=== PATIENT | female | born 1975 | race Caucasian/White ===

== ENCOUNTER 2017-01-09 10:57 | Emergency (ER) | payer OTHER ==
[2017-01-09 11:02] VITALS: BP 102/70; PULSE 81; TEMP 98; BMI 28.3
--- NOTE | 2017-01-09 13:12 | PDOC ---
"History of Present Illness - General Chief Complaint: Pain Stated Complaint: RT LEG PAIN Time Seen by Provider: 01/09/17 12:38 History Source: Patient Exam Limitations: No Limitations - History of Present Illness Initial Comments: 01/09/17 13:09 My Chief Complaint: right knee pain History of present illness: Patient is a 41-year-old female with a history of asthma, mitral valve prolapse, hyperlipidemia, anxiety, gastric sleeve, bipolar disorder here today complaining of right knee pain 2 weeks. Patient reports that 2 weeks ago she was seen at [facility] and was given a right knee immobilizer and referred to Dr. Mcguire, Dr. larios on 01/04/17 and patient then soft pain management on 01/06/2017. Patient reports that she is taking morphine sulfate, percocet, toradol tabs and naprosyn for OA of her spine. Ports that pain in right anterior knee is a burning sensation unrelieved by the pain medications that she is currently taking patient is ambulating with knee immobilizer and crutches. 01/09/17 13:15 Occurred: reports: other (2 weeks ago ) Severity: Yes: severe (right knee ) Lower Extremity Pain Location: right: knee (anterior ) Method of Injury: Yes: unknown Modifying Factors: improves with: immobilization Lower Ext. Injury Location - Specific Injury Location Knees: left pain (anterior ) Extremity Pain Location - Extremity Pain Location Extremity Pain Locations: right: knee Past History - Past Medical History Allergies/Adverse Reactions: Allergies Allergy/AdvReac Type Severity Reaction Status Date / Time No Known Drug Allergies Allergy Verified 01/09/17 11:02 Home Medications: Ambulatory Orders Albuterol 0.083% Nebulizer Alexa [Ventolin 0.083%] 1 neb NEB QID PRN 07/02/15 Albuterol Sulfate Inhaler - [Ventolin Hfa Inhaler -] 2 inh PO Q4H 07/02/15 Aripiprazole [Abilify] 10 mg PO HS 07/02/15 Benztropine Mesylate [Cogentin -] 2 mg PO DAILY 07/02/15 Budesonide/Formeterol Fumarate [SYMBICORT 160/4.5mcg -] 1 inh PO BID 07/02/15 Calcium Carbonate/Vitamin D3 [Calcium + Vitamin D Tablet] 1 each PO DAILY Clonazepam [Klonopin] 2 mg PO BID 07/02/15 Duloxetine HCl [Cymbalta] 20 mg PO DAILY 07/02/15 Eletriptan Hydrobromide [Relpax] 40 mg PO PRN PRN 07/02/15 Gabapentin [Neurontin] 800 mg PO TID 07/02/15 Hydroxyzine Pamoate [Vistaril -] 50 mg PO BID 07/02/15 Mirtazapine 30 mg PO HS 07/02/15 Montelukast Na [Singulair -] 10 mg PO DAILY 07/02/15 Morphine *Sr* [Ms Contin -] 15 mg PO Q12H 07/02/15 Multivitamin Bariatric Supplement 1 tab PO DAILY 07/02/15 Multivitamin [Poly-Vitamin] 1 each PO DAILY 07/02/15 Naproxen/Esomeprazole Mag [Vimovo Dr 375-20 mg Tablet] 1 each PO BID 07/02/15 Oxycodone HCl/Acetaminophen [Percocet 7.5-325 mg Tablet -] 1 - 2 tab PO Q8H Pantoprazole Sodium [Protonix] 40 mg PO DAILY 07/02/15 Pregabalin [Lyrica] 100 mg PO TID 07/02/15 Roflumilast [Daliresp] 500 mcg PO DAILY 07/02/15 Sumatriptan Succinate [Imitrex -] 50 mg PO PRN PRN 07/02/15 Tiotropium [place] [Spiriva -] 1 inh PO DAILY 07/02/15 Triplix 135 mg PO DAILY 07/02/15 Tropimate 100 mg PO BID 07/02/15 Ciprofloxacin [Cipro (Restricted To Id)] 500 mg PO Q12H 07/23/15 Diclofenac Sodium/Misoprostol [Arthrotec EC 75 mg-200 Mcg Tab] 1 each PO BID # 20 tablet.dr 07/23/15 Tizanidine HCl 4 mg PO TID #10 capsule 07/23/15 Anemia: No Asthma: Yes Cancer: No Cardiac Disorders: No (mitral valve prolapse) CVA: No COPD: No CHF: No Dementia: No Diabetes: No GI Disorders: No Disorders: No HTN: No Hypercholesterolemia: Yes Liver Disease: No Psychiatric Problems: Yes (anxiety) Seizures: No Thyroid Disease: No Other medical history: Arthritis - Surgical History Abdominal Surgery: (gastric sleeve) Appendectomy: Yes Cholecystectomy: Yes - Psycho/Social/Smoking Cessation Hx Suicidal Ideation: No Smoking History: Never smoked Have you smoked in the past 12 months: No Information on smoking cessation initiated: No Hx Alcohol Use: No Drug/Substance Use Hx: No Substance Use Type: None Hx Substance Use Treatment: No Review of Systems - Review of Systems Able to Perform ROS?: Yes HEENTM: No: Symptoms Reported Respiratory: No: Symptoms reported Cardiac (ROS): No: Symptoms Reported ABD/GI: No: Symptoms Reported : No: Symptoms Reported Musculoskeletal: Yes: Joint Pain (rt. knee anterior ), Joint Swelling (rt. knee anterior (knee immoblizer in place tight) ) Neurological: No: Symptoms reported *Physical Exam - Vital Signs Last Vital Signs Temp Pulse Resp BP Pulse Ox 98 F 81 18 102/70 95 01/09/17 11:01 01/09/17 11:01 01/09/17 11:01 01/09/17 11:01 01/09/17 11:01 - Physical Exam General Appearance: Yes: Appropriately Dressed Vascular Pulses: Dorsalis-Pedis (R): 4+ Extremity: positive: Normal Capillary Refill, Normal Range of Motion, Tender ( rt. anterior knee ), Swelling (rt. anterior knee (immobilizer on excessively tight)), Other (no crepitus rt. knee, negative anterior/posterior drawer) Integumentary: positive: Normal Color Neurologic: positive: Alert, Normal Response, Responsive Medical Decision Making - Medical Decision Making Patient is a 41-year-old female with a history of asthma, mitral valve prolapse , hyperlipidemia, anxiety, gastric sleeve, bipolar disorder here today complaining of right knee pain 2 weeks. Patient reports that 2 weeks ago she was seen at [facility] and was given a right knee immobilizer and referred to Dr. Mcguire, Dr. larios on 01/04/17 and patient then soft pain management on 01/06/2017. Patient reports that she is taking morphine sulfate, percocet, toradol tabs and naprosyn for OA of her spine. Ports that pain in right anterior knee is a burning sensation unrelieved by the pain medications that she is currently taking patient is ambulating with knee immobilizer and crutches. Pt. has not taking toradol or naprosyn today right knee pain PLAN: Toradol 60 mg IM now follow up with ortho knee immoblizer reapplied less tight instructed not to apply it as tight and to use crutches for ambulation pt. was instructed to elevate and to apply ice every 2 hrs while awake for 15 minutes Pt. informed that I could not order her any other pain medication at this time due to amount of pain medications she is already both narcotic and NSAID 01/09/17 13:14 Confidential Drug Utilization Report Search Terms: Farideh Ramsey, 1975 Search Date: 01/09/2017 01:06:47 PM This report was requested by: Marion Alatorre | Reference #: [id number] Others' Prescriptions Patient Name: Farideh Aldrich Date: 1975 Address: [address] [place] [address] Sex: Female Rx Written Rx Dispensed Drug Quantity Days Supply Prescriber Name 12/06/2016 01/03/2017 endocet 10-325 mg tablet 120 30 Bulmaro Benavides 12/06/2016 01/03/2017 morphine sulf er 15 mg tablet 60 30 TesfayeholBulmaro blount 12/13/2016 12/29/2016 clonazepam 2 mg tablet 90 30 Otilia Loyd 01/09/17 13:15 01/09/17 13:28 *DC/Admit/Observation/Transfer Diagnosis at time of Disposition: Knee pain, right anterior - Discharge Dispostion Disposition: HOME Condition at time of disposition: Stable - Referrals Referrals: Rio Kruse [Primary Care Provider] - - Patient Instructions Additional Instructions: follow up with ortho put on knee immoblizer reapplied less tight and to use crutches for ambulation elevate and to apply ice every 2 hrs while awake for 15 minutes continue to take your medications for pain as previously ordered Patient voiced understanding of discharge instructions and all questions were answered"
[2017-01-09] MEDS ORDERED: KETOROLAC TROMETHAMINE 60 MG/2 ML VIAL IM ONE (13:28)
[2017-01-09] MEDS ORDERED: KETOROLAC TROMETHAMINE 60 MG/2 ML VIAL ONE (13:28)
== END 2017-01-09 13:33 | disposition home or self-care (01) ==
LOC: JERFT 10:57
PROC: 3E0233Z Introduction of Anti-inflammatory into Muscle, Percutaneous Approach (ICD-10-PCS; principal; 2017-01-09)
DX: M25.561 Pain in right knee (principal); J45.909 Unspecified asthma, uncomplicated; E78.5 Hyperlipidemia, unspecified; F41.9 Anxiety disorder, unspecified; I34.1 Nonrheumatic mitral (valve) prolapse; F31.9 Bipolar disorder, unspecified; Z98.84 Bariatric surgery status
CPT/HCPCS: 96372; 99281-25

== ENCOUNTER 2017-07-06 11:34 | Emergency (ER) | payer OTHER ==
[2017-07-06 11:42] VITALS: BMI 24.7
[2017-07-06] MEDS ORDERED: ONDANSETRON 4 MG/2 ML VIAL IVPUSH ONE (12:33)
[2017-07-06] MEDS ORDERED: SODIUM CHLORIDE 1,000 ML IV STA (12:33)
--- NOTE | 2017-07-06 12:45 | PDOC ---
History of Present Illness - General Chief Complaint: Chest Pain Stated Complaint: HEADACHE, LIGHTHEADED (PCP SENT) Time Seen by Provider: 07/06/17 12:09 History Source: Patient Exam Limitations: No Limitations - History of Present Illness Initial Comments: 07/06/17 12:35 The patient is a 41 year old female, with a significant past medical history of anxiety, depression, panic attacks, and migraines, who presents to the emergency department sent by her neurologist for full body tremors x 3 days. Patient states for the past 2 weeks she has been having a constant headache, bifrontal, radiating to her neck, pressure like. Patient also endorses blurry vision, nausea, vomiting, and nighttime diaphoresis. She also states that she has been having midsternal chest pain, 8/10, non radaiting, pressure like, for 2 weeks. 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 She takes aspirin for it. Patient denies fever, chills, diarrhea, shortness of breath, abdominal pain, dysuria, hematuria. Of note, patient had a gastric sleeve 3 years prior and has had poor appetite since. Allergies: NKDA Past surgical history: Gastric Sleeve, Appendectomy, Cholecystectomy Social history: Denies PMD - Dr. Rossi Neurologist- Dr. Caamrgo 07/06/17 15:29 Past History - Past Medical History Allergies/Adverse Reactions: Allergies Allergy/AdvReac Type Severity Reaction Status Date / Time No Known Drug Allergies Allergy Verified 07/06/17 11:39 Home Medications: Ambulatory Orders Albuterol 0.083% Nebulizer Alexa [Ventolin 0.083%] 1 neb NEB QID PRN 07/02/15 Albuterol Sulfate Inhaler - [Ventolin Hfa Inhaler -] 2 inh PO Q4H 07/02/15 Aripiprazole [Abilify] 10 mg PO HS 07/02/15 Benztropine Mesylate [Cogentin -] 2 mg PO DAILY 07/02/15 Budesonide/Formeterol Fumarate [SYMBICORT 160/4.5mcg -] 1 inh PO BID 07/02/15 Calcium Carbonate/Vitamin D3 [Calcium + Vitamin D Tablet] 1 each PO DAILY Clonazepam [Klonopin] 2 mg PO BID 07/02/15 Duloxetine HCl [Cymbalta] 20 mg PO DAILY 07/02/15 Eletriptan Hydrobromide [Relpax] 40 mg PO PRN PRN 07/02/15 Gabapentin [Neurontin] 800 mg PO TID 07/02/15 Hydroxyzine Pamoate [Vistaril -] 50 mg PO BID 07/02/15 Mirtazapine 30 mg PO HS 07/02/15 Montelukast Na [Singulair -] 10 mg PO DAILY 07/02/15 Morphine *Sr* [Ms Contin -] 15 mg PO Q12H 07/02/15 Multivitamin Bariatric Supplement 1 tab PO DAILY 07/02/15 Multivitamin [Poly-Vitamin] 1 each PO DAILY 07/02/15 Naproxen/Esomeprazole Mag [Vimovo Dr 375-20 mg Tablet] 1 each PO BID 07/02/15 Oxycodone HCl/Acetaminophen [Percocet 7.5-325 mg Tablet -] 1 - 2 tab PO Q8H Pantoprazole Sodium [Protonix] 40 mg PO DAILY 07/02/15 Pregabalin [Lyrica] 100 mg PO TID 07/02/15 Roflumilast [Daliresp] 500 mcg PO DAILY 07/02/15 Sumatriptan Succinate [Imitrex -] 50 mg PO PRN PRN 07/02/15 Tiotropium [place] [Spiriva -] 1 inh PO DAILY 07/02/15 Triplix 135 mg PO DAILY 07/02/15 Tropimate 100 mg PO BID 07/02/15 Ciprofloxacin [Cipro (Restricted To Id)] 500 mg PO Q12H 07/23/15 Diclofenac Sodium/Misoprostol [Arthrotec EC 75 mg-200 Mcg Tab] 1 each PO BID # 20 tablet. 07/23/15 Tizanidine HCl 4 mg PO TID #10 capsule 07/23/15 Anemia: No Asthma: Yes Cancer: No Cardiac Disorders: (mitral valve prolapse) CVA: No COPD: No CHF: No Dementia: No Diabetes: No GI Disorders: No Disorders: No HTN: No Hypercholesterolemia: Yes Liver Disease: No Psychiatric Problems: Yes (anxiety) Seizures: No Thyroid Disease: No - Surgical History Abdominal Surgery: (gastric sleeve) Appendectomy: Yes Cholecystectomy: Yes - Suicide/Smoking/Psychosocial Hx Smoking History: Never smoked Have you smoked in the past 12 months: No Hx Alcohol Use: No Drug/Substance Use Hx: No Substance Use Type: None Hx Substance Use Treatment: No Review of Systems - Review of Systems Able to Perform ROS?: Yes Comments:: 07/06/17 12:37 GENERAL/CONSTITUTIONAL: No fever or chills. No weakness. HEAD, EYES, EARS, NOSE AND THROAT: +change in vision. No ear pain or discharge. No sore throat. CARDIOVASCULAR: +chest pain, No shortness of breath RESPIRATORY: No cough, wheezing, or hemoptysis. GASTROINTESTINAL: +nausea, +vomiting, No diarrhea or constipation. GENITOURINARY: No dysuria, frequency, or change in urination. MUSCULOSKELETAL: No joint or muscle swelling or pain. No neck or back pain. SKIN: No rash NEUROLOGIC: + headache, No vertigo, loss of consciousness, or change in strength /sensation. +lightheadedness ENDOCRINE: No increased thirst. No abnormal weight change HEMATOLOGIC/LYMPHATIC: No anemia, easy bleeding, or history of blood clots. ALLERGIC/IMMUNOLOGIC: No hives or skin allergy. *Physical Exam - Vital Signs Last Vital Signs Temp Pulse Resp BP Pulse Ox 98.3 F 104 H 19 101/64 100 07/06/17 11:39 07/06/17 11:39 07/06/17 11:39 07/06/17 11:39 07/06/17 11:39 - Physical Exam Comments: 07/06/17 12:37 GENERAL: Awake, alert, and fully oriented, in no acute distress HEAD: No signs of trauma, normocephalic, atraumatic EYES: PERRLA, EOMI, sclera anicteric, conjunctiva clear ENT: hearing grossly normal, nares patent, oropharynx clear without exudates. Dry mucosa NECK: Normal ROM, supple, no lymphadenopathy, JVD, or masses LUNGS: No distress, speaks full sentences, clear to auscultation bilaterally HEART: Regular rate and rhythm, normal S1 and S2, no murmurs, rubs or gallops, peripheral pulses normal and equal bilaterally. ABDOMEN: Soft, nontender, normoactive bowel sounds. No guarding, no rebound. No masses EXTREMITIES: Normal inspection, Normal range of motion, no edema. No clubbing or cyanosis. NEUROLOGICAL: Cranial nerves II through XII grossly intact. Normal speech, 4/5 strength in UE, 5/5 strength in LE, no change in sensation. +Resting Tremors SKIN: Warm, Dry, normal turgor, no rashes or lesions noted. ED Treatment Course - LABORATORY CBC & Chemistry Diagram: 07/06/17 12:58 07/06/17 15:03 Medical Decision Making - Medical Decision Making 07/06/17 12:52 The patient is a 41 year old female, with a significant past medical history of anxiety, depression, panic attacks, and migraines, who presents to the emergency department sent by her neurologist for full body tremors x 3 days. Plan: CBC, CMP, EKG, Cardiac Profile, Serum Preg, UA, UCx, IVF, Zofran 07/06/17 15:18 CBC, Head CT unremarkable 07/06/17 15:37 Call placed to [facility]ola who sent the patient in. [employer]ING [employer] GAUGER wants MRI brain. Call placed to our neurologist Dr. Saez. Dr Saez will come evaluate the patient. 07/06/17 15:53 CMP, TSH- unremarkable 07/06/17 18:26 Repeat troponin at 7 pm. If negative, patient stable for d/c 07/06/17 20:34 2nd trop negative. Patient stable for d/c *DC/Admit/Observation/Transfer Diagnosis at time of Disposition: Tremor - Discharge Dispostion Disposition: HOME Condition at time of disposition: Stable - Referrals Referrals: Rio Kruse [Primary Care Provider] - Brisa Camargo MD [Staff Physician] - - Patient Instructions Printed Discharge Instructions: DI for Benign Essential Tremor Additional Instructions: Follow up with your psychiatrist and your neurologist. Your head CT and Chest xray were negative. If you have chest pain, shortness of breath, or any new/worsening symptoms please come back to the hospital immediately.
[2017-07-06] MEDS ORDERED: LORazepam 1 MG TABLET PO ONE (13:04)
[2017-07-06] MEDS ORDERED: ONDANSETRON 4 MG/2 ML VIAL ONE (13:08)
[2017-07-06] MEDS ORDERED: LORazepam 0.5 MG TABLET ONE ×2 (13:08→14:51)
[2017-07-06 13:14] LABS: BASOPHIL 0.8 % (0-2.0); EOSINOPHIL 1.2 % (0-4.5); MCH 31.1 pg (25.7-33.7); MCHC 34.1 g/dl (32.0-36.0); MEAN CELL VOLUME 91.4 fl (80-96); MEAN PLT VOLUME 7.5 fl (7.5-11.1); NEUTROPHILS 62.2 % (42.8-82.8); PLATELET COUNT 329 K/MM3 (134-434); RDW 13.1 % (11.6-15.6); WHITE BLOOD COUNT 7.6 K/mm3 (4.0-10.0)
[2017-07-06] MEDS ORDERED: LORazepam 0.5 MG TABLET PO ONE (14:02)
--- NOTE | 2017-07-06 14:56 | EKG ---
Test Reason : Blood Pressure : / mmHG Vent. Rate : 095 BPM Atrial Rate : 267 BPM P-R Int : 000 ms QRS Dur : 074 ms QT Int : 370 ms P-R-T Axes : 000 049 055 degrees QTc Int : 464 ms POOR DATA QUALITY, INTERPRETATION MAY BE ADVERSELY AFFECTED UNDETERMINED RHYTHM NONSPECIFIC ST AND T WAVE ABNORMALITY ABNORMAL ECG Confirmed by STACY RAO MD ([id number]) on 07/06/2017 2:56:17 PM Referred By: Confirmed By:STACY RAO MD
[2017-07-06 15:39] LABS: ALBUMIN 3.5 g/dl (3.4-5.0); ANION GAP 7 (8-16); BILIRUBIN,TOTAL 0.5 mg/dL (0.2-1.0); CALCIUM 8.2 mg/dL (8.5-10.1); CO2 27 mmol/L (21-32); CREATININE 0.6 mg/dL (0.55-1.02); GLUCOSE,RANDOM 78 mg/dL (74-106); SGOT/AST 13 U/L (15-37); SGPT/ALT 19 U/L (12-78); TOT PROT 6.5 g/dl (6.4-8.2)
[2017-07-06 15:48] LABS: ALK PHOS 96 U/L (45-117); CPK 26 IU/L (26-192); THYROID STIMULATING HORMONE 0.75 uIU/ml (0.358-3.74); TROPONIN I < 0.02 ng/ml (0.00-0.05)
--- NOTE | 2017-07-06 16:34 | PDOC ---
Attending Attestation - Resident Resident Name: Inder Mclean - ED Attending Attestation I have performed the following: I have examined & evaluated the patient, The case was reviewed & discussed with the resident, I agree w/resident's findings & plan, Exceptions are as noted - HPI HPI: 07/06/17 16:32 41-year-old female presents to the ER with generalized tremors involving upper and lower extremities bilaterally for the past 3 days, frontal headache, insomnia and intermittent chest pain. - Physicial Exam PE: 07/06/17 16:33 Patient is awake and alert, anxious appearing, with resting and intentional tremor of upper and lower extremities and festinating gait. Patient's tremor disappears when she is not actively being examined by the M.D. but reappears when the M.D. is noted or the patient is approached. nc, atr perrla cta rrr Cranial nerves II through XII are grossly intact; motor is 5 of 54; - Medical Decision Making 07/06/17 16:33 41-year-old female with 3 days of bilateral upper and lower extremity intentional and resting tremor. CT head is within normal limit. We'll consult neurology. I suspect secondary gain with malingering.
--- NOTE | 2017-07-06 17:19 | CON.NEURO ---
Consult - Past Medical History ...LMP: 06/29/15 - Past Surgical History Past Surgical History: Yes: Appendectomy, Cholecystectomy - Alcohol/Substance Use Hx Alcohol Use: No - Smoking History Smoking history: Never smoked Have you smoked in the past 12 months: No Home Medications - Allergies Allergies/Adverse Reactions: Allergies Allergy/AdvReac Type Severity Reaction Status Date / Time No Known Drug Allergies Allergy Verified 07/06/17 11:39 - Home Medications Home Medications: Ambulatory Orders Albuterol 0.083% Nebulizer Alexa [Ventolin 0.083%] 1 neb NEB QID PRN 07/02/15 Albuterol Sulfate Inhaler - [Ventolin Hfa Inhaler -] 2 inh PO Q4H 07/02/15 Aripiprazole [Abilify] 10 mg PO HS 07/02/15 Benztropine Mesylate [Cogentin -] 2 mg PO DAILY 07/02/15 Budesonide/Formeterol Fumarate [SYMBICORT 160/4.5mcg -] 1 inh PO BID 07/02/15 Calcium Carbonate/Vitamin D3 [Calcium + Vitamin D Tablet] 1 each PO DAILY Clonazepam [Klonopin] 2 mg PO BID 07/02/15 Duloxetine HCl [Cymbalta] 20 mg PO DAILY 07/02/15 Eletriptan Hydrobromide [Relpax] 40 mg PO PRN PRN 07/02/15 Gabapentin [Neurontin] 800 mg PO TID 07/02/15 Hydroxyzine Pamoate [Vistaril -] 50 mg PO BID 07/02/15 Mirtazapine 30 mg PO HS 07/02/15 Montelukast Na [Singulair -] 10 mg PO DAILY 07/02/15 Morphine *Sr* [Ms Contin -] 15 mg PO Q12H 07/02/15 Multivitamin Bariatric Supplement 1 tab PO DAILY 07/02/15 Multivitamin [Poly-Vitamin] 1 each PO DAILY 07/02/15 Naproxen/Esomeprazole Mag [Vimovo Dr 375-20 mg Tablet] 1 each PO BID 07/02/15 Oxycodone HCl/Acetaminophen [Percocet 7.5-325 mg Tablet -] 1 - 2 tab PO Q8H Pantoprazole Sodium [Protonix] 40 mg PO DAILY 07/02/15 Pregabalin [Lyrica] 100 mg PO TID 07/02/15 Roflumilast [Daliresp] 500 mcg PO DAILY 07/02/15 Sumatriptan Succinate [Imitrex -] 50 mg PO PRN PRN 07/02/15 Tiotropium [place] [Spiriva -] 1 inh PO DAILY 07/02/15 Triplix 135 mg PO DAILY 07/02/15 Tropimate 100 mg PO BID 07/02/15 Ciprofloxacin [Cipro (Restricted To Id)] 500 mg PO Q12H 07/23/15 Diclofenac Sodium/Misoprostol [Arthrotec EC 75 mg-200 Mcg Tab] 1 each PO BID # 20 tablet. 07/23/15 Tizanidine HCl 4 mg PO TID #10 capsule 07/23/15 Physical Exam-Neuro Vital Signs: Vital Signs Temperature 98.3 F 07/06/17 11:39 Pulse Rate 104 H 07/06/17 11:39 Respiratory Rate 19 07/06/17 11:39 Blood Pressure 101/64 07/06/17 11:39 O2 Sat by Pulse Oximetry (%) 100 07/06/17 11:39 Labs: CBC, BMP 07/06/17 12:58 07/06/17 15:03 Assessment/Plan CC SENt from dr gardner [employer] for worsening of tremors HPI 41 year old female hsitory of panic attacks, depression , anxiety and migraine came with her daughter with complain of whole body tremors for three days. She was seeing neurologist for chronic headhace. She takes Benzotropine, clonazepam 2 mg bid , gbapentin remeron, vistaril , morphine recently her sister was caught in storm at [place] and she is coming to live with her and she is very stressed. as per daughter she has trouble sleeping her ct head is normal and tsh was normal before Allergies: NKDA Past surgical history: Gastric Sleeve, Appendectomy, Cholecystectomy 07/06/17 15:29 Home Medications: Ambulatory Orders Albuterol 0.083% Nebulizer Alexa [Ventolin 0.083%] 1 neb NEB QID PRN 07/02/15 Albuterol Sulfate Inhaler - [Ventolin Hfa Inhaler -] 2 inh PO Q4H 07/02/15 Aripiprazole [Abilify] 10 mg PO HS 07/02/15 Benztropine Mesylate [Cogentin -] 2 mg PO DAILY 07/02/15 Budesonide/Formeterol Fumarate [SYMBICORT 160/4.5mcg -] 1 inh PO BID 07/02/15 Calcium Carbonate/Vitamin D3 [Calcium + Vitamin D Tablet] 1 each PO DAILY Clonazepam [Klonopin] 2 mg PO BID 07/02/15 Duloxetine HCl [Cymbalta] 20 mg PO DAILY 07/02/15 Eletriptan Hydrobromide [Relpax] 40 mg PO PRN PRN 07/02/15 Gabapentin [Neurontin] 800 mg PO TID 07/02/15 Hydroxyzine Pamoate [Vistaril -] 50 mg PO BID 07/02/15 Mirtazapine 30 mg PO HS 07/02/15 Montelukast Na [Singulair -] 10 mg PO DAILY 07/02/15 Morphine *Sr* [Ms Contin -] 15 mg PO Q12H 07/02/15 Multivitamin Bariatric Supplement 1 tab PO DAILY 07/02/15 Multivitamin [Poly-Vitamin] 1 each PO DAILY 07/02/15 Naproxen/Esomeprazole Mag [Vimovo Dr 375-20 mg Tablet] 1 each PO BID 07/02/15 Oxycodone HCl/Acetaminophen [Percocet 7.5-325 mg Tablet -] 1 - 2 tab PO Q8H Pantoprazole Sodium [Protonix] 40 mg PO DAILY 07/02/15 Pregabalin [Lyrica] 100 mg PO TID 07/02/15 Roflumilast [Daliresp] 500 mcg PO DAILY 07/02/15 Sumatriptan Succinate [Imitrex -] 50 mg PO PRN PRN 07/02/15 Tiotropium [place] [Spiriva -] 1 inh PO DAILY 07/02/15 Triplix 135 mg PO DAILY 07/02/15 Tropimate 100 mg PO BID 07/02/15 Ciprofloxacin [Cipro (Restricted To Id)] 500 mg PO Q12H 07/23/15 Diclofenac Sodium/Misoprostol [Arthrotec EC 75 mg-200 Mcg Tab] 1 each PO BID # 20 tablet. 07/23/15 Tizanidine HCl 4 mg PO TID #10 capsule 07/23/15 Neurological Examination Aler oriented x 3, CN all intact motor moving all extremity there is no rigidity or bradykinesia there is brief pelvic thrusting and both arm and legs seen shaking, Ct head is normal Assessment- psychogenic tremors vs enhanced physiologic tremors, tsh and ct head was normal Plan recommend to increase klonipin or gabapnetin - she would need psychiatrist consult outpatient no need for mri at this time she can follow up with dr gardner outpatient or can be sent to movement disorder clinic if needed Kwasi Castillo MD
[2017-07-06 20:07] LABS: CPK 24 IU/L (26-192); TROPONIN I < 0.02 ng/ml (0.00-0.05)
[2017-07-06 20:48] VITALS: BP 100/69; PULSE 70; TEMP 98.2
--- NOTE | 2017-07-07 09:48 | EKG ---
Test Reason : Blood Pressure : / mmHG Vent. Rate : 082 BPM Atrial Rate : 082 BPM P-R Int : 150 ms QRS Dur : 080 ms QT Int : 400 ms P-R-T Axes : 030 014 024 degrees QTc Int : 467 ms NORMAL SINUS RHYTHM NONSPECIFIC T WAVE ABNORMALITY Confirmed by MARIA TERESA BHANDARI MD ([id number]) on 07/07/2017 9:48:29 AM Referred By: Confirmed By:MARIA TERESA BHANDARI MD
== END 2017-07-06 20:48 | disposition home or self-care (01) ==
LOC: JER 11:34
DX: G25.2 Other specified forms of tremor (principal); F41.8 Other specified anxiety disorders; F41.0 Panic disorder [episodic paroxysmal anxiety]; Z86.69 Personal history of other diseases of the nervous system and sense organs
CPT/HCPCS: 36415; 70450-TC; 71020-TC; 80053; 82550; 84443; 84484; 84703; 85025; 93005; 93010; 99281-25

== ENCOUNTER 2017-10-11 11:33 | Emergency (ER) | payer OTHER ==
[2017-10-11 11:39] VITALS: TEMP 98.5; BMI 25.7
[2017-10-11] MEDS ORDERED: ACETAMINOPHEN 1000 MG/100 ML VIAL (NON FORMULARY) IVPB ONE (12:08)
[2017-10-11] MEDS ORDERED: SODIUM CHLORIDE 1,000 ML IV STA (12:08)
[2017-10-11] MEDS ORDERED: METOCLOPRAMIDE HCL INJECTION 10 MG/2 ML VIAL IVPB ONE (12:08)
[2017-10-11] MEDS ORDERED: ACETAMINOPHEN INJECTION 100 ML IVPB ONE (12:14)
--- NOTE | 2017-10-11 12:30 | PDOC ---
History of Present Illness - General Chief Complaint: Headache Stated Complaint: HEADACHE, RT SIDE/ PAIN Time Seen by Provider: 10/11/17 12:01 - History of Present Illness Initial Comments: 10/11/17 12:24 "The patient is a 41 year old female, with a significant past medical history of anxiety, depression, panic attacks, and migraines, who presents to the emergency department for sudden onset of left sided chest pain, left upper abdominal pain since last night and shortness of breath since yesterday. The patient reports a strong, 10/10, pressure pain to her left anterior chest radiating to her left posterior shoulder. She states that the pain radiates down her left arm. The patient states she feels she can not take a deep breath and reports a suffocating sensation when trying to do so. The patient states she has been hot then cold and sweaty intermittently since onset of symptoms last night. She states she has a diffuse pressure headache for 2 days which is consistent with her usual migraines. She denies dizziness. She denies fever, nausea, vomit, diarrhea and constipation. She denies dysuria, frequency, urgency and hematuria. Allergies: NKDA Past surgical history: Gastric Sleeve, Appendectomy, Cholecystectomy Social history: Denies toxic habits PMD - Dr. Kruse Neurologist- Dr. Camargo " Past History - Past Medical History Allergies/Adverse Reactions: Allergies Allergy/AdvReac Type Severity Reaction Status Date / Time No Known Drug Allergies Allergy Verified 07/06/17 11:39 Home Medications: Ambulatory Orders Albuterol 0.083% Nebulizer Alexa [Ventolin 0.083%] 1 neb NEB QID PRN 07/02/15 Albuterol Sulfate Inhaler - [Ventolin Hfa Inhaler -] 2 inh PO Q4H 07/02/15 Aripiprazole [Abilify] 10 mg PO HS 07/02/15 Benztropine Mesylate [Cogentin -] 2 mg PO DAILY 07/02/15 Budesonide/Formeterol Fumarate [SYMBICORT 160/4.5mcg -] 1 inh PO BID 07/02/15 Calcium Carbonate/Vitamin D3 [Calcium + Vitamin D Tablet] 1 each PO DAILY Clonazepam [Klonopin] 2 mg PO BID 07/02/15 Duloxetine HCl [Cymbalta] 20 mg PO DAILY 07/02/15 Eletriptan Hydrobromide [Relpax] 40 mg PO PRN PRN 07/02/15 Gabapentin [Neurontin] 800 mg PO TID 07/02/15 Hydroxyzine Pamoate [Vistaril -] 50 mg PO BID 07/02/15 Mirtazapine 30 mg PO HS 07/02/15 Montelukast Na [Singulair -] 10 mg PO DAILY 07/02/15 Morphine *Sr* [Ms Contin -] 15 mg PO Q12H 07/02/15 Multivitamin Bariatric Supplement 1 tab PO DAILY 07/02/15 Multivitamin [Poly-Vitamin] 1 each PO DAILY 07/02/15 Naproxen/Esomeprazole Mag [Vimovo Dr 375-20 mg Tablet] 1 each PO BID 07/02/15 Oxycodone HCl/Acetaminophen [Percocet 7.5-325 mg Tablet -] 1 - 2 tab PO Q8H Pantoprazole Sodium [Protonix] 40 mg PO DAILY 07/02/15 Pregabalin [Lyrica] 100 mg PO TID 07/02/15 Roflumilast [Daliresp] 500 mcg PO DAILY 07/02/15 Sumatriptan Succinate [Imitrex -] 50 mg PO PRN PRN 07/02/15 Tiotropium [place] [Spiriva -] 1 inh PO DAILY 07/02/15 Triplix 135 mg PO DAILY 07/02/15 Tropimate 100 mg PO BID 07/02/15 Diclofenac Sodium/Misoprostol [Arthrotec EC 75 mg-200 Mcg Tab] 1 each PO BID # 20 tablet.dr 07/23/15 Tizanidine HCl 4 mg PO TID #10 capsule 07/23/15 Anemia: No Asthma: Yes Cancer: No Cardiac Disorders: (mitral valve prolapse) CVA: No COPD: No CHF: No Dementia: No Diabetes: No GI Disorders: No Disorders: No HTN: No Hypercholesterolemia: Yes Liver Disease: No Psychiatric Problems: No (anxiety) Seizures: No Thyroid Disease: No - Surgical History Abdominal Surgery: Yes (gastric sleeve) Appendectomy: Yes Cholecystectomy: Yes - Suicide/Smoking/Psychosocial Hx Smoking History: Never smoked Have you smoked in the past 12 months: No Hx Alcohol Use: No Drug/Substance Use Hx: No Substance Use Type: None Hx Substance Use Treatment: No Cardiac Specific PMH - Complaint Specific PMHX GERD: No Pacemaker: No Review of Systems - Review of Systems Comments:: 10/11/17 12:25 """GENERAL/CONSTITUTIONAL: (+) subjective fever and chills. No weakness. HEAD, EYES, EARS, NOSE AND THROAT: No change in vision. No ear pain or discharge. No sore throat. CARDIOVASCULAR: (+) chest pain, diaphoresis, and shortness of breath. RESPIRATORY: No cough, wheezing, or hemoptysis. GASTROINTESTINAL: No nausea, vomiting, diarrhea or constipation. GENITOURINARY: No dysuria, frequency, or change in urination. MUSCULOSKELETAL: No joint or muscle swelling. No neck or back pain. SKIN: No rash NEUROLOGIC: (+) migraine. No vertigo, loss of consciousness, ENDOCRINE: No increased thirst. No abnormal weight change. HEMATOLOGIC/LYMPHATIC: No anemia, easy bleeding, or history of blood clots. ALLERGIC/IMMUNOLOGIC: No hives or skin allergy. """ *Physical Exam - Vital Signs Last Vital Signs Temp Pulse Resp BP Pulse Ox 98.5 F 71 18 105/57 99 10/11/17 11:35 10/11/17 14:21 10/11/17 14:21 10/11/17 14:21 10/11/17 14:21 - Physical Exam Comments: 10/11/17 12:26 "GENERAL: Awake, alert, and fully oriented, in no acute distress HEAD: No signs of trauma EYES: PERRLA, EOMI, sclera anicteric, conjunctiva clear ENT: Auricles normal inspection, hearing grossly normal, nares patent, oropharynx clear without exudates. Moist mucosa NECK: Nontender, no stepoffs, Normal ROM, supple, no lymphadenopathy, JVD, or masses LUNGS: Breath sounds equal, clear to auscultation bilaterally. No wheezes, and no crackles HEART: Regular rate and rhythm, normal S1 and S2, no murmurs, rubs or gallops ABDOMEN: Soft, nontender, normoactive bowel sounds. No guarding, no rebound. No masses EXTREMITIES: Normal range of motion, no edema. No clubbing or cyanosis. No cords, erythema, or tenderness NEUROLOGICAL: Cranial nerves II through XII intact. 5/5 strength and sensation in all extremities, Normal speech, normal gait SKIN: Warm, Dry, normal turgor, no rashes or lesions noted. " Heart Score/ECG Review - History History: Moderately suspicious - Electrocardiogram EKG: Non specific repolarization disturbance - Age Age: </= 45 - Risk Factors Based on the list above the patient has:: 1-2 risk factors - Troponin Troponin: </= normal limit - Score Heart Score - Total: 3 - ECG Impressions Comment:: NSR, no KAVITHA/STDs, TWI V1-V2, axis wnl, intervals wnl ED Treatment Course - LABORATORY CBC & Chemistry Diagram: 10/11/17 12:10 10/11/17 12:10 - ADDITIONAL ORDERS Additional order review: Laboratory Results 10/11/17 10/11/17 10/11/17 13:40 12:10 12:10 PT with INR 11.20 INR 0.99 PTT (Actin FS) 33.6 D-Dimer Sodium 140 Potassium 5.1 Chloride 103 Carbon Dioxide 29 Anion Gap 8 BUN 9 Creatinine 0.6 Creat Clearance w eGFR > 60 Random Glucose 87 Calcium 8.6 Total Bilirubin 0.2 D AST 25 ALT 15 Alkaline Phosphatase 72 Creatine Kinase 79 Troponin I < 0.02 B-Natriuretic Peptide 115.15 Total Protein 6.9 Albumin 3.5 Lipase 305 Urine HCG, Qual Negative 10/11/17 12:10 PT with INR INR PTT (Actin FS) D-Dimer 761 H Sodium Potassium Chloride Carbon Dioxide Anion Gap BUN Creatinine Creat Clearance w eGFR Random Glucose Calcium Total Bilirubin AST ALT Alkaline Phosphatase Creatine Kinase Troponin I B-Natriuretic Peptide Total Protein Albumin Lipase Urine HCG, Qual 10/11/17 12:10 RBC 4.54 MCV 92.2 MCHC 32.7 RDW 12.2 MPV 7.9 Neutrophils % 56.8 Lymphocytes % 32.8 Monocytes % 7.1 Eosinophils % 2.8 D Basophils % 0.5 - RADIOLOGY Radiology Studies Ordered: Category Date Time Status CHEST CTA [CT] Stat CT Scan 10/11/17 14:34 Completed CHEST PA & LAT [RAD] Stat Radiology 10/11/17 12:08 Completed - Medications Given in the ED: ED Medications Discontinued Medications Generic Name Dose Route Start Last Admin Trade Name Freq PRN Reason Stop Dose Admin Acetaminophen 1,000 mg 10/11/17 12:08 10/11/17 12:36 Ofirmev Injection - IVPB 10/11/17 12:09 1,000 mg ONCE ONE Administration Sodium Chloride 1,000 mls @ 1,000 mls/hr 10/11/17 12:08 10/11/17 12:36 Normal Saline - IV 10/11/17 13:07 1,000 mls/hr ASDIR STA Administration Metoclopramide HCl 10 mg 10/11/17 12:08 10/11/17 12:36 Reglan Injection - IVPB 10/11/17 12:09 10 mg ONCE ONE Administration Medical Decision Making - Medical Decision Making 10/11/17 12:28 41 F with L sided chest pain, SOB, and LUQ pain. Concerning for ACS, though pt with unremarkable EKG. Pt has no PE risk factors and PERC score 0, with no clinical signs/symptoms of DVT. Pt also complaining of LUQ pain but has completely benign abdominal exam. - Labs, trop, ddimer - CXR 10/11/17 16:09 CBC,CMP WBC 6.9 K/mm3 (4.0-10.0) 10/11/17 12:10 RBC 4.54 M/mm3 (3.60-5.2) 10/11/17 12:10 Hgb 13.7 GM/dL (10.7-15.3) 10/11/17 12:10 Hct 41.9 % (32.4-45.2) 10/11/17 12:10 MCV 92.2 fl (80-96) 10/11/17 12:10 MCH 30.1 pg (25.7-33.7) 10/11/17 12:10 MCHC 32.7 g/dl (32.0-36.0) 10/11/17 12:10 RDW 12.2 % (11.6-15.6) 10/11/17 12:10 Plt Count 252 K/MM3 (134-434) D 10/11/17 12:10 MPV 7.9 fl (7.5-11.1) 10/11/17 12:10 Neutrophils % 56.8 % (42.8-82.8) 10/11/17 12:10 Lymphocytes % 32.8 % (8-40) 10/11/17 12:10 Monocytes % 7.1 % (3.8-10.2) 10/11/17 12:10 Eosinophils % 2.8 % (0-4.5) D 10/11/17 12:10 Basophils % 0.5 % (0-2.0) 10/11/17 12:10 Sodium 140 mmol/L (136-145) 10/11/17 12:10 Potassium 5.1 mmol/L (3.5-5.1) 10/11/17 12:10 Chloride 103 mmol/L (98-107) 10/11/17 12:10 Carbon Dioxide 29 mmol/L (21-32) 10/11/17 12:10 Anion Gap 8 (8-16) 10/11/17 12:10 BUN 9 mg/dL (7-18) 10/11/17 12:10 Creatinine 0.6 mg/dL (0.55-1.02) 10/11/17 12:10 Creat Clearance w eGFR > 60 (>60) 10/11/17 12:10 Random Glucose 87 mg/dL (74-106) 10/11/17 12:10 Calcium 8.6 mg/dL (8.5-10.1) 10/11/17 12:10 Total Bilirubin 0.2 mg/dL (0.2-1.0) D 10/11/17 12:10 AST 25 U/L (15-37) 10/11/17 12:10 ALT 15 U/L (12-78) 10/11/17 12:10 Alkaline Phosphatase 72 U/L (45-117) 10/11/17 12:10 Creatine Kinase 79 IU/L (26-192) 10/11/17 12:10 Troponin I < 0.02 ng/ml (0.00-0.05) 10/11/17 12:10 B-Natriuretic Peptide 115.15 pg/ml (5-125) 10/11/17 12:10 Total Protein 6.9 g/dl (6.4-8.2) 10/11/17 12:10 Albumin 3.5 g/dl (3.4-5.0) 10/11/17 12:10 Lipase 305 U/L (73-393) 10/11/17 12:10 Ddimer elevated CTPE without any evidence of PE Pt reassessed - now reports significant improvement in pain. Pt is well appearing, with normal vitals. Clinically stable for DC at this time. I discussed the physical exam findings, ancillary test results and final diagnoses with the patient. I answered all of the patient's questions. The patient was satisfied with the care received and felt comfortable with the discharge plan and treatment plan. The patient agrees to follow up with the primary care physician within 24-72 hours. *DC/Admit/Observation/Transfer Diagnosis at time of Disposition: Chest pain - Discharge Dispostion Disposition: HOME - Referrals Referrals: Rio Kruse [Primary Care Provider] - Alexandr Bonds MD [Staff Physician] - - Patient Instructions Printed Discharge Instructions: DI for Atypical Chest Pain Additional Instructions: Please follow up with your labor conciliator within 1 week for further evaluation of your chest pain. Although the tests today were normal, we cannot rule out all heart disease. You may need a stress test. If you experience any worsening chest pain, shortness of breath, or any other concerning symptoms, return to the ER immediately. - Post Discharge Activity - Attestations Physician Attestion: 10/11/17 16:14 I, Dr. Gomez Rashid MD, attest that this document has been prepared under my direction and personally reviewed by me in its entirety. I further attest, that it accurately reflects all work, treatment, procedures and medical decision -making performed by me.
[2017-10-11] MEDS ORDERED: METOCLOPRAMIDE HCL INJECTION 10 MG/2 ML VIAL ONE (12:49)
[2017-10-11 13:11] LABS: BASO % 0.5 % (0-2.0); EOS % 2.8 % (0-4.5); HEMATOCRIT 41.9 % (32.4-45.2); HEMOGLOBIN 13.7 GM/dL (10.7-15.3); LYMPH % 32.8 % (8-40); MCH 30.1 pg (25.7-33.7); MCHC 32.7 g/dl (32.0-36.0); MEAN CELL VOLUME 92.2 fl (80-96); MEAN PLT VOLUME 7.9 fl (7.5-11.1); MONO % 7.1 % (3.8-10.2); NEUT % 56.8 % (42.8-82.8); PLATELET COUNT 252 K/MM3 (134-434); RBC 4.54 M/mm3 (3.60-5.2); RDW 12.2 % (11.6-15.6); WHITE BLOOD COUNT 6.9 K/mm3 (4.0-10.0)
[2017-10-11 13:29] LABS: INR 0.99 (0.82-1.09); PROTHROMBIN TIME (PATIENT) 11.2 SEC (9.98-11.88)
[2017-10-11 13:32] LABS: ACTIVATED PTT 33.6 SECONDS (26.9-34.4)
[2017-10-11 13:43] LABS: ANION GAP 8 (8-16); BLOOD UREA NITROGEN 9 mg/dL (7-18); CALCIUM 8.6 mg/dL (8.5-10.1); CHLORIDE 103 mmol/L (98-107); CO2 29 mmol/L (21-32); GLUCOSE,RANDOM 87 mg/dL (74-106); SODIUM 140 mmol/L (136-145)
[2017-10-11 13:57] LABS: ALBUMIN 3.5 g/dl (3.4-5.0); BILIRUBIN,TOTAL 0.2 mg/dL (0.2-1.0); CREATININE 0.6 mg/dL (0.55-1.02); SGPT/ALT 15 U/L (12-78); TOT PROT 6.9 g/dl (6.4-8.2)
[2017-10-11 13:58] LABS: ALK PHOS 72 U/L (45-117); N-TERMINAL BNP 115.15 pg/ml (5-125)
[2017-10-11 14:04] LABS: LIPASE 305 U/L (73-393)
[2017-10-11 14:05] LABS: POTASSIUM 5.1 mmol/L (3.5-5.1); SGOT/AST 25 U/L (15-37)
--- NOTE | 2017-10-11 15:33 | EKG ---
Test Reason : Blood Pressure : / mmHG Vent. Rate : 077 BPM Atrial Rate : 077 BPM P-R Int : 136 ms QRS Dur : 074 ms QT Int : 382 ms P-R-T Axes : 028 039 048 degrees QTc Int : 432 ms NORMAL SINUS RHYTHM NORMAL ECG WHEN COMPARED WITH ECG OF 06-JUL-2017 15:11, NO SIGNIFICANT CHANGE WAS FOUND Confirmed by HÉCTOR MAHARAJ MD ([id number]) on 10/11/2017 3:32:44 PM Referred By: Confirmed By:HÉCTOR MAHARAJ MD
[2017-10-11 16:58] VITALS: BP 104/74; PULSE 78
== END 2017-10-11 16:59 | disposition home or self-care (01) ==
LOC: JER 11:33
PROC: 3E0337Z Introduction of Electrolytic and Water Balance Substance into Peripheral Vein, Percutaneous Approach (ICD-10-PCS; principal; 2017-10-11)
DX: R07.89 Other chest pain (principal); F41.8 Other specified anxiety disorders; G43.909 Migraine, unspecified, not intractable, without status migrainosus; J45.909 Unspecified asthma, uncomplicated; I34.1 Nonrheumatic mitral (valve) prolapse
CPT/HCPCS: 36415; 71046-TC; 71275-TC; 80053; 82550; 83690; 83880; 84484; 84703; 85025; 85379; 85610; 85730; 93005; 93010; 96360; 99283-25

== ENCOUNTER 2019-06-11 08:07 | Emergency (ER) | payer OTHER ==
[2019-06-11] MEDS ORDERED: KETOROLAC TROMETHAMINE 30 MG/1 ML VIAL IVPUSH ONE (08:15)
[2019-06-11] MEDS ORDERED: SODIUM CHLORIDE 0.9% 1000 ML INFUS.BAG IV ONE (08:15)
[2019-06-11 08:20] VITALS: BMI 26.5
[2019-06-11] MEDS ORDERED: ASPIRIN COATED 81 MG TABLET.EC PO ONE (08:29)
--- NOTE | 2019-06-11 08:29 | PDOC ---
History of Present Illness - General Chief Complaint: Chest Pain Stated Complaint: CHEST PAIN Time Seen by Provider: 06/11/19 08:11 History Source: Patient Exam Limitations: No Limitations - History of Present Illness Initial Comments: 06/11/19 08:20 43F with a PMH of anxiety, depression, panic attacks, and migraines who presents to the ER complaining of CP. The patient states that she began developing L sided chest pressure since last night. She states that the pain starts in her L anterior chest, radiates to her shoulder and to her back. The pain started gradually and worsened this morning. She admits to mild nausea and palpitations but denies SOB, lightheadedness, diaphoresis, abdominal pain. She denies hempotysis, recent travel, recent surgery, pleuritic component to CP, hx of DVT/PE. Past History - Past Medical History Allergies/Adverse Reactions: Allergies Allergy/AdvReac Type Severity Reaction Status Date / Time No Known Drug Allergies Allergy Verified 06/11/19 08:12 Home Medications: Ambulatory Orders Albuterol 0.083% Nebulizer Alexa [Ventolin 0.083%] 1 neb NEB QID PRN 07/02/15 Albuterol Sulfate Inhaler - [Ventolin Hfa Inhaler -] 2 inh PO Q4H 07/02/15 Aripiprazole [Abilify] 10 mg PO HS 07/02/15 Benztropine Mesylate [Cogentin -] 2 mg PO DAILY 07/02/15 Budesonide/Formeterol Fumarate [SYMBICORT 160/4.5mcg -] 1 inh PO BID 07/02/15 Calcium Carbonate/Vitamin D3 [Calcium + Vitamin D Tablet] 1 each PO DAILY Clonazepam [Klonopin] 2 mg PO BID 07/02/15 Duloxetine HCl [Cymbalta] 20 mg PO DAILY 07/02/15 Eletriptan Hydrobromide [Relpax] 40 mg PO PRN PRN 07/02/15 Gabapentin [Neurontin] 800 mg PO TID 07/02/15 Mirtazapine 30 mg PO HS 07/02/15 Montelukast Na [Singulair -] 10 mg PO DAILY 07/02/15 Morphine *Sr* [Ms Contin -] 15 mg PO Q12H 07/02/15 Multivitamin Bariatric Supplement 1 tab PO DAILY 07/02/15 Multivitamin [Poly-Vitamin] 1 each PO DAILY 07/02/15 Naproxen/Esomeprazole Mag [Vimovo Dr 375-20 mg Tablet] 1 each PO BID 07/02/15 Oxycodone HCl/Acetaminophen [Percocet 7.5-325 mg Tablet -] 1 - 2 tab PO Q8H Pantoprazole Sodium [Protonix] 40 mg PO DAILY 07/02/15 Pregabalin [Lyrica] 100 mg PO TID 07/02/15 Roflumilast [Daliresp] 500 mcg PO DAILY 07/02/15 Sumatriptan Succinate [Imitrex -] 50 mg PO PRN PRN 07/02/15 Tiotropium [place] [Spiriva -] 1 inh PO DAILY 07/02/15 Triplix 135 mg PO DAILY 07/02/15 Tropimate 100 mg PO BID 07/02/15 hydrOXYzine PAMOATE [Vistaril -] 50 mg PO BID 07/02/15 Diclofenac Sodium/Misoprostol [Arthrotec EC 75 mg-200 Mcg Tab] 1 each PO BID # 20 tablet. 07/23/15 Tizanidine HCl 4 mg PO TID #10 capsule 07/23/15 Anemia: No Asthma: Yes Cancer: No Cardiac Disorders: (mitral valve prolapse) CVA: No COPD: No CHF: No Dementia: No Diabetes: No GI Disorders: No Disorders: No HTN: No Hypercholesterolemia: Yes Liver Disease: No Psychiatric Problems: No (anxiety) Seizures: No Thyroid Disease: No - Surgical History Abdominal Surgery: Yes (gastric sleeve) Appendectomy: Yes Cholecystectomy: Yes - Suicide/Smoking/Psychosocial Hx Smoking History: Unknown if ever smoked Have you smoked in the past 12 months: No Hx Alcohol Use: No Drug/Substance Use Hx: No Substance Use Type: None Hx Substance Use Treatment: No Review of Systems - Review of Systems Able to Perform ROS?: Yes Comments:: 06/11/19 08:37 GENERAL/CONSTITUTIONAL: No fever or chills. No weakness. HEAD, EYES, EARS, NOSE AND THROAT: No change in vision. No ear pain or discharge. No sore throat. CARDIOVASCULAR: + for chest pain and palpitations. No lightheadedness. RESPIRATORY: No cough, wheezing, shortness of breath, or hemoptysis. GASTROINTESTINAL: + for nausea. No abdominal pain, vomiting, diarrhea, or constipation. GENITOURINARY: No dysuria, frequency, hematuria, or change in urination. MUSCULOSKELETAL: No joint or muscle swelling or pain. No neck or back pain. SKIN: No rash or lesions. NEUROLOGIC: No headache, numbness, tingling, focal weakness, loss of consciousness, or change in strength/sensation. Is the patient limited Malay proficient: No *Physical Exam - Vital Signs Last Vital Signs Temp Pulse Resp BP Pulse Ox 98.2 F 85 22 H 110/61 96 06/11/19 08:10 06/11/19 08:10 06/11/19 08:10 06/11/19 08:10 06/11/19 08:10 - Physical Exam Comments: 06/11/19 08:38 GENERAL: Well developed, well nourished. Awake and alert. No acute distress. HEENT: Normocephalic, atraumatic. Hearing grossly normal. Moist mucous membranes. PERRLA, EOMI. No conjunctival pallor. Sclera are non-icteric. NECK: Supple. Full ROM. No JVD. CARDIOVASCULAR: Regular rate and rhythm. No murmurs, rubs, or gallops. PULMONARY: No evidence of respiratory distress. Lungs clear to auscultation bilaterally. No wheezing, rales or rhonchi. ABDOMINAL: Soft. Non-tender. Non-distended. No rebound or guarding. GENITOURINARY: No CVA tenderness bilaterally. MUSCULOSKELETAL: TTP over L anterior chest and L superior back. Normal range of motion at all joints. EXTREMITIES: No cyanosis. No clubbing. No edema. No calf tenderness or swelling. SKIN: Warm and dry. Normal capillary refill. No rashes. No jaundice. NEUROLOGICAL: Alert, awake, appropriate. Cranial nerves 2-12 grossly intact. Normal speech. Gait is normal without ataxia. PSYCHIATRIC: Cooperative. Good eye contact. Appropriate mood and affect. ED Treatment Course - LABORATORY CBC & Chemistry Diagram: 06/11/19 08:40 06/11/19 08:40 - RADIOLOGY Radiology Studies Ordered: Category Date Time Status CHEST PA & LAT [RAD] Stat Radiology 06/11/19 08:15 Ordered Medical Decision Making - Medical Decision Making 06/11/19 08:40 43F with a PMH of HLD, anxiety, depression who presents to the ER with reproducible CP that has been worsening since last night. Pt uncomfortable appearing. Will obtain labs, EKG, troponin, and CXR. Giving toradol for chest wall pain and fluids. Asa given. Pending labs and imaging. EKG unremarkable. 06/11/19 09:46 CBC, CMP, troponin, CXR negative. Will repeat troponin at 1140. 06/11/19 11:41 Second troponin sent. 06/11/19 12:23 Repeat trop negative. Will d/c with PCP f/u. *DC/Admit/Observation/Transfer Diagnosis at time of Disposition: Chest pain, atypical - Discharge Dispostion Disposition: HOME Condition at time of disposition: Stable Decision to Admit order: No - Referrals Referrals: Rio Kruse [Primary Care Provider] - - Patient Instructions Printed Discharge Instructions: DI for Atypical Chest Pain Additional Instructions: Your ER visit is not complete until your follow up with your primary care physician and clinical psychology teacher. Please follow up with your primary care physician and clinical psychology teacher in 1-2 days. Please return to the ER if you have any signs or symptoms of chest pain, shortness of breath, uncontrollable fever, chills, nausea, vomiting, numbness, tingling, or weakness in any part of your body, changes in vision, or slurred speech. Please take your medications as prescribed. Please return to the ER if symptoms persist, worsen, or new symptoms arise. Hanson visita a la petrona de emergencias no est completa hasta hanson seguimiento con hanson mdico de atencin primaria y cardilogo. Thierno un seguimiento con hanson mdico de atencin primaria y cardilogo en 1-2 aguilar. Regrese a la petrona de emergencias si tiene signos o sntomas de dolor en el pecho , falta de aliento, fiebre incontrolable, escalofros, nuseas, vmitos, entumecimiento, hormigueo o debilidad en alguna parte de hanson cuerpo, cambios en la visin o dificultad para hablar. Por favor tome taras medicamentos mariely se los recetaron. Regrese a la petrona de emergencias si los sntomas persisten, empeoran o surgen nuevos sntomas. - Post Discharge Activity
[2019-06-11] MEDS ORDERED: ASPIRIN 81 MG CHEWABLE TABLETS ONE (08:30)
[2019-06-11] MEDS ORDERED: KETOROLAC TROMETHAMINE 30 MG/1 ML VIAL ONE (08:35)
[2019-06-11 09:00] VITALS: TEMP 98.1
--- NOTE | 2019-06-11 09:03 | PDOC ---
Attending Attestation - Resident Resident Name: Xu Neal - ED Attending Attestation I have performed the following: I have examined & evaluated the patient, The case was reviewed & discussed with the resident, I agree w/resident's findings & plan - HPI HPI: 06/11/19 08:53 43y/o F h/o high chol, depression/anxiety/panic attacks initially here with her daughter (presented for evaluation of headache and cramping) p/w L chest pain since yesterday. Gradual onset progressive L chest pain, pressure- like, constant and now radiating to L shoulder. Very positional in nature, worse with torso twist or sitting/standing. no cough/f/c/sob, no DVT/PE risk factors. has had similar pain in the past, stress test last year and cath at [facility] this year (per pt report) negative. at baseline, has no recurring exercise limitations. - Physicial Exam PE: 06/11/19 09:03 vss, o2 sat 100 room air, no respiratory distress seated in stretcher, grimacing with any positional change no jvd s1s2 rrr, no murmur, ctab. abd benign no edema/calf ttp pinpoint reproducible ttp L anterolateral chest without redness/swelling or rib deformity/bruising - Medical Decision Making 06/11/19 09:05 43y/o F high chol and emphysema p/w atypical L chest pain since yesterday, exacerbated while with family in the ED today. VSS, stat EKG showed no ischemic changes. ? exacerbation of chronic musculoskeletal pain v. anxiety/panic attack , less likely acute pleuritic pain or infectious/inflammatory process, not consistent with ACS or PE. labs, check trop x2. given onset yesterday, would be reassuring in ruling out low heart score presentation cxr, ekg asa, toradol reassess. followed by Dr. Kruse Heart Score/ECG Review - History History: Slightly suspicious - Electrocardiogram EKG: Normal - Age Age: </= 45 - Risk Factors Based on the list above the patient has:: 1-2 risk factors - Troponin Troponin: </= normal limit - Score Heart Score - Total: 1 #1 ECG reviewed & interpreted by me at: 08:08 General ECG Interpretation: Sinus Rhythm, Normal Rate (85), Normal Intervals ( qtc 449), No acute ischemic changes
[2019-06-11 09:06] LABS: BASO % 0.9 % (0-2.0); EOS % 1.6 % (0-4.5); HEMATOCRIT 38.6 % (32.4-45.2); HEMOGLOBIN 12.9 GM/dL (10.7-15.3); LYMPH % 25.5 % (8-40); MCH 31.1 pg (25.7-33.7); MCHC 33.5 g/dl (32.0-36.0); MEAN CELL VOLUME 92.9 fl (80-96); MEAN PLT VOLUME 7.9 fl (7.5-11.1); MONO % 7.3 % (3.8-10.2); NEUT % 64.7 % (42.8-82.8); PLATELET COUNT 249 K/MM3 (134-434); RBC 4.15 M/mm3 (3.60-5.2); RDW 12.7 % (11.6-15.6); WHITE BLOOD COUNT 7.3 K/mm3 (4.0-10.0)
[2019-06-11 09:18] LABS: PROTHROMBIN TIME (PATIENT) 11.8 SEC (9.7-13.0)
[2019-06-11] MEDS ORDERED: ACETAMINOPHEN 1000 MG/100 ML VIAL (NON FORMULARY) IVPB ONE (09:18)
[2019-06-11] MEDS ORDERED: ACETAMINOPHEN INJECTION 100 ML IVPB ONE (09:18)
[2019-06-11 09:24] LABS: ALBUMIN 3.4 g/dl (3.4-5.0); BILIRUBIN,TOTAL 0.3 mg/dL (0.2-1); BLOOD UREA NITROGEN 15.8 mg/dL (7-18); CALCIUM 9.1 mg/dL (8.5-10.1); CREATININE 0.7 mg/dL (0.55-1.3); POTASSIUM 4.2 mmol/L (3.5-5.1); TOT PROT 6.3 g/dl (6.4-8.2)
[2019-06-11] MEDS ORDERED: clonazePAM 2 MG TABLET PO ONE (09:56)
[2019-06-11] MEDS ORDERED: traMADol HCL 50 MG TABLET PO ONE (09:56)
[2019-06-11] MEDS ORDERED: traMADol HCL 50 MG TABLET ONE (10:08)
[2019-06-11] MEDS ORDERED: clonazePAM 0.5 MG TABLET ONE (10:09)
--- NOTE | 2019-06-11 12:09 | EKG ---
Test Reason : Blood Pressure : / mmHG Vent. Rate : 085 BPM Atrial Rate : 085 BPM P-R Int : 146 ms QRS Dur : 078 ms QT Int : 378 ms P-R-T Axes : 054 031 041 degrees QTc Int : 449 ms NORMAL SINUS RHYTHM NORMAL ECG WHEN COMPARED WITH ECG OF 11-OCT-2017 11:42, NO SIGNIFICANT CHANGE WAS FOUND Confirmed by MD Allison Edward ([id number]) on 06/11/2019 12:08:56 PM Referred By: Confirmed By:[place] Allison MD
[2019-06-11 12:34] VITALS: BP 109/74; PULSE 68
== END 2019-06-11 12:43 | disposition home or self-care (01) ==
LOC: JER 08:07
PROC: 3E033NZ Introduction of Analgesics, Hypnotics, Sedatives into Peripheral Vein, Percutaneous Approach (ICD-10-PCS; principal; 2019-06-11)
PROC: 3E0333Z Introduction of Anti-inflammatory into Peripheral Vein, Percutaneous Approach (ICD-10-PCS; 2019-06-11)
DX: R07.89 Other chest pain (principal); F41.8 Other specified anxiety disorders; F32.9 Major depressive disorder, single episode, unspecified; F41.0 Panic disorder [episodic paroxysmal anxiety]; J45.909 Unspecified asthma, uncomplicated; E78.00 Pure hypercholesterolemia, unspecified; Z98.84 Bariatric surgery status; I34.1 Nonrheumatic mitral (valve) prolapse
CPT/HCPCS: 36415; 71046-TC-FY; 80053; 82550; 84484; 85025; 85610; 93005; 93010; 99285-25; J0131; J7030

== ENCOUNTER 2021-09-24 23:42 | Emergency (ER) | payer OTHER ==
[2021-09-24 23:58] VITALS: TEMP 98.2; BMI 30.1
[2021-09-25] MEDS ORDERED: ACETAMINOPHEN 1000 MG/100 ML BAG IVPB ONE (01:01)
[2021-09-25] MEDS ORDERED: ACETAMINOPHEN INJECTION 100 ML IVPB ONE (01:21)
[2021-09-25 01:52] LABS: BASO % 0.6 % (0-2.0); EOS % 0.3 % (0-4.5); HEMATOCRIT 38.5 % (32.4-45.2); HEMOGLOBIN 13.2 GM/dL (10.7-15.3); LYMPH % 14.3 % (8-40); MCH 31.5 pg (25.7-33.7); MCHC 34.2 g/dl (32.0-36.0); MEAN CELL VOLUME 92.1 fl (80-96); MEAN PLT VOLUME 6.9 fl (7.5-11.1); MONO % 5.9 % (3.8-10.2); NEUT % 78.9 % (42.8-82.8); PLATELET COUNT 370 10^3/uL (134-434); RBC 4.17 M/mm3 (3.60-5.2); RDW 13.3 % (11.6-15.6); WHITE BLOOD COUNT 14.2 K/mm3 (4.0-10.0)
[2021-09-25 02:12] LABS: CHLORIDE 106 mmol/L (98-107); SODIUM 140 mmol/L (136-145)
[2021-09-25 02:13] LABS: MAGNESIUM 1.8 mg/dL (1.8-2.4)
[2021-09-25 02:14] LABS: ALBUMIN 3.2 g/dl (3.4-5.0); ANION GAP 7 MMOL/L (8-16); BLOOD UREA NITROGEN 17.1 mg/dL (7-18); CALCIUM 8.7 mg/dL (8.5-10.1); CO2 28 mmol/L (21-32); GLUCOSE,RANDOM 87 mg/dL (74-106)
[2021-09-25 02:17] LABS: CREATININE 0.8 mg/dL (0.55-1.3); SGPT/ALT 25 U/L (13-61)
[2021-09-25 02:18] LABS: SGOT/AST 31 U/L (15-37)
[2021-09-25 02:19] LABS: BILIRUBIN,TOTAL 0.4 mg/dL (0.2-1); TOT PROT 6.6 g/dl (6.4-8.2)
[2021-09-25 02:20] LABS: ALK PHOS 78 U/L (45-117)
[2021-09-25 02:47] LABS: URINE APPEARANCE CLEAR; URINE BILIRUBIN NEGATIVE (NEGATIVE); URINE COLOR YELLOW; URINE GLUCOSE (UA) NEGATIVE (NEGATIVE); URINE KETONE NEGATIVE (NEGATIVE); URINE LEUK ESTERASE NEGATIVE (NEGATIVE); URINE NITRITE NEGATIVE (NEGATIVE); URINE PROTEIN NEGATIVE (NEGATIVE); URINE UROBILINOGEN 0.2 mg/dL (0.2-1.0)
[2021-09-25 03:41] VITALS: BP 110/68; PULSE 75
[2021-09-25 05:11] LABS: ANISOCYTOSIS 0; MACROCYTOSIS 0; PLATELET ESTIMATE NORMAL; ROULEAU 1+
== END 2021-09-25 03:49 | disposition home or self-care (01) ==
LOC: JER 23:42
PROC: 3E033NZ Introduction of Analgesics, Hypnotics, Sedatives into Peripheral Vein, Percutaneous Approach (ICD-10-PCS; principal; 2021-09-25)
DX: R00.2 Palpitations (principal)
CPT/HCPCS: 36415; 71046-TC-FY; 80053; 81003; 82550; 83735; 84443; 84484; 84702; 85025; 93005; 93010; 99284-25; C9803; J0131; U0003; U0005

== ENCOUNTER 2023-03-29 17:07 | Observation (INO) | payer OTHER ==
[2023-03-29] MEDS ORDERED: ALBUTEROL SO4 2.5/IPRATROPIUM 0.5 INH SOL 3 ML VIAL.NEB. NEB ONE ×2 (17:45→17:48)
[2023-03-29] MEDS ORDERED: methylPREDNISolone NA SUCC 125 MG/2 ML VIAL IVPB ONE (17:49)
[2023-03-29] MEDS ORDERED: methylPREDNISolone NA SUCC 125 MG/2 ML VIAL ONE (17:59)
[2023-03-29 18:34] LABS: BASO % 0.6 % (0-2.0); HEMATOCRIT 42.8 % (32.4-45.2); HEMOGLOBIN 14.5 GM/dL (10.7-15.3); LYMPH % 26.6 % (8-40); MCH 30.5 pg (25.7-33.7); MCHC 33.8 g/dl (32.0-36.0); MEAN CELL VOLUME 90.2 fl (80-96); MONO % 8.9 % (3.8-10.2); NEUT % 60.9 % (42.8-82.8); RBC 4.75 M/mm3 (3.60-5.2); RDW 13.4 % (11.6-15.6); WHITE BLOOD COUNT 6.8 K/mm3 (4.0-10.0)
[2023-03-29 18:52] LABS: POTASSIUM 5.1 mmol/L (3.5-5.1)
[2023-03-29] MEDS ORDERED: AZITHROMYCIN 250 MG TABLET PO ONE (18:52)
[2023-03-29 18:53] LABS: PLATELET COUNT 219 10^3/uL (134-434)
[2023-03-29 18:54] LABS: CALCIUM 9.4 mg/dL (8.5-10.1)
[2023-03-29] MEDS ORDERED: AZITHROMYCIN IVPB 500 MG/250 ML BAG IVPB ONE (18:54)
[2023-03-29 18:55] LABS: ALBUMIN 3.4 g/dl (3.4-5.0); BLOOD UREA NITROGEN 11.6 mg/dL (7-18)
[2023-03-29] MEDS ORDERED: AZITHROMYCIN IVPB 500 MG in DEXTROSE 5%-WATER - 250 ML IVPB ONE (18:57)
[2023-03-29 18:58] LABS: CREATININE 0.9 mg/dL (0.55-1.3)
[2023-03-29 18:59] LABS: BILIRUBIN,TOTAL 0.6 mg/dL (0.2-1)
[2023-03-29 19:48] LABS: VENOUS BASE EXCESS -4.4 mmol/L (-2-2); VENOUS O2 SATURATION 88.8 % (70-80); VENOUS PCO2 32.8 mmHg (38-52); VENOUS PH 7.393 (7.310-7.410)
[2023-03-29] MEDS ORDERED: DOCUSATE SODIUM 100 MG CAPSULE (FP) PO PRN (21:27)
[2023-03-29] MEDS ORDERED: ACETAMINOPHEN 1000 MG/100 ML BAG IVPB PRN (21:32)
[2023-03-30 00:31] VITALS: BMI 32.2
[2023-03-30] MEDS: INSULIN SLIDING SCALE (NOVOLOG) 1 VIAL SQ SCH ×5 (01:16→21:49)
[2023-03-30] MEDS: methylPREDNISolone NA SUCC 40 MG/1 ML VIAL IVPUSH SCH ×3 (01:33→17:24)
[2023-03-30 07:47] LABS: INR 1.05 (0.83-1.09); PROTHROMBIN TIME (PATIENT) 12.2 SEC (9.7-13.0)
[2023-03-30 07:50] LABS: ACTIVATED PTT 33.5 SECONDS (25.2-36.5); BASO % 0.1 % (0-2.0); HEMATOCRIT 41.6 % (32.4-45.2); HEMOGLOBIN 13.7 GM/dL (10.7-15.3); MCH 30.1 pg (25.7-33.7); MCHC 32.9 g/dl (32.0-36.0); MEAN CELL VOLUME 91.6 fl (80-96); MEAN PLT VOLUME 8.7 fl (7.5-11.1); MONO % 2.6 % (3.8-10.2); NEUT % 80.3 % (42.8-82.8); PLATELET COUNT 231 10^3/uL (134-434); RBC 4.54 M/mm3 (3.60-5.2); WHITE BLOOD COUNT 2.7 K/mm3 (4.0-10.0)
[2023-03-30] MEDS ORDERED: hydrOXYzine PAMOATE 50 MG CAPSULE (FP) PO PRN (07:57)
[2023-03-30] MEDS ORDERED: ALBUTEROL SO4 0.083% IH SOL 2.5 MG/3 ML VIAL.NEB. NEB PRN (07:57)
[2023-03-30 08:01] LABS: POTASSIUM 4.2 mmol/L (3.5-5.1)
[2023-03-30 08:12] LABS: CALCIUM 9.1 mg/dL (8.5-10.1)
[2023-03-30 08:13] LABS: BLOOD UREA NITROGEN 8.4 mg/dL (7-18)
[2023-03-30 08:16] LABS: CREATININE 0.6 mg/dL (0.55-1.3); PHOSPHOROUS 3.4 mg/dL (2.5-4.9)
[2023-03-30] MEDS: ASPIRIN COATED 81 MG TABLET.EC PO SCH (09:43)
[2023-03-30] MEDS: EZETIMIBE 10 MG TABLET (FP) PO SCH (09:43)
[2023-03-30] MEDS: TOPIRAMATE 100 MG TABLET PO SCH ×2 (09:43→21:44)
[2023-03-30] MEDS: FUROSEMIDE 40 MG TABLET (FP) PO SCH (09:43)
[2023-03-30] MEDS: PANTOPRAZOLE 40 MG TABLET PO SCH (09:43)
[2023-03-30] MEDS: VENLAFAXINE HCL 75 MG E.R. CAPSULES PO SCH (09:51)
[2023-03-30] MEDS: FLUTICASONE/UMECLIDIN/VILANTER(200-62.5-25 TRELEGY ELLIPTA) INAHLER IH SCH (11:27)
[2023-03-30] MEDS: ALBUTEROL SO4 0.083% IH SOL 2.5 MG/3 ML VIAL.NEB. NEB SCH ×3 (12:48→20:05)
[2023-03-30] MEDS: AZITHROMYCIN IVPB 500 MG/250 ML BAG IVPB SCH (13:33)
[2023-03-30] MEDS: GABAPENTIN 400 MG CAPSULE PO SCH ×2 (13:34→21:44)
[2023-03-30] MEDS ORDERED: INSULIN (NOVOLOG) ASPART 100 UNITS/ML 10ML VIAL ONE (16:59)
[2023-03-30] MEDS ORDERED: ACETAMINOPHEN 325 MG TABLET (FP) PO PRN (21:27)
[2023-03-30] MEDS ORDERED: ATORVASTATIN CA 40 MG TABLET (FP) PO SCH (22:00)
[2023-03-30] MEDS ORDERED: MONTELUKAST NA 10 MG TABLET PO SCH (22:00)
[2023-03-31] MEDS: methylPREDNISolone NA SUCC 40 MG/1 ML VIAL IVPUSH SCH ×3 (02:34→17:36)
[2023-03-31] MEDS: GABAPENTIN 400 MG CAPSULE PO SCH ×2 (05:31→13:57)
[2023-03-31] MEDS: INSULIN SLIDING SCALE (NOVOLOG) 1 VIAL SQ SCH ×3 (06:19→17:42)
[2023-03-31] MEDS: ALBUTEROL SO4 0.083% IH SOL 2.5 MG/3 ML VIAL.NEB. NEB SCH ×3 (07:10→15:47)
[2023-03-31 09:52] VITALS: RESP 18
[2023-03-31] MEDS: AZITHROMYCIN IVPB 500 MG/250 ML BAG IVPB SCH (09:57)
[2023-03-31] MEDS: EZETIMIBE 10 MG TABLET (FP) PO SCH (09:59)
[2023-03-31] MEDS: ASPIRIN COATED 81 MG TABLET.EC PO SCH (09:59)
[2023-03-31] MEDS: VENLAFAXINE HCL 75 MG E.R. CAPSULES PO SCH (09:59)
[2023-03-31] MEDS: TOPIRAMATE 100 MG TABLET PO SCH (10:01)
[2023-03-31] MEDS: FUROSEMIDE 40 MG TABLET (FP) PO SCH (10:01)
[2023-03-31] MEDS: PANTOPRAZOLE 40 MG TABLET PO SCH (10:01)
[2023-03-31] MEDS: FLUTICASONE/UMECLIDIN/VILANTER(200-62.5-25 TRELEGY ELLIPTA) INAHLER IH SCH (10:02)
[2023-03-31] MEDS ORDERED: INSULIN (NOVOLOG) ASPART 100 UNITS/ML 10ML VIAL ONE (11:58)
[2023-03-31 18:39] VITALS: BP 118/79; PULSE 106; TEMP 98.1
== END 2023-03-31 19:17 | disposition home or self-care (01) ==
LOC: JER 17:07 → JERBED 20:16 → J4W 23:52
PROVIDERS: ADMIT Internal Medicine; ATTEND Family Medicine
PROC: 3E0F7GC Introduction of Other Therapeutic Substance into Respiratory Tract, Via Natural or Artificial Opening (ICD-10-PCS; principal; 2023-03-29)
PROC: 3E0F7GC Introduction of Other Therapeutic Substance into Respiratory Tract, Via Natural or Artificial Opening (ICD-10-PCS; 2023-03-29)
PROC: 3E03329 Introduction of Other Anti-infective into Peripheral Vein, Percutaneous Approach (ICD-10-PCS; 2023-03-29)
PROC: 3E033GC Introduction of Other Therapeutic Substance into Peripheral Vein, Percutaneous Approach (ICD-10-PCS; 2023-03-29)
DX: E11.9 Type 2 diabetes mellitus without complications (principal); I10 Essential (primary) hypertension; J44.9 Chronic obstructive pulmonary disease, unspecified; Z99.81 Dependence on supplemental oxygen; F32.A Depression, unspecified; F41.0 Panic disorder [episodic paroxysmal anxiety]; G43.909 Migraine, unspecified, not intractable, without status migrainosus; I20.9 Angina pectoris, unspecified
CPT/HCPCS: 0241U-QW; 36415; 71046-TC-FY; 80048; 80053; 82803; 82962; 83735; 84100; 84484; 85025; 85610; 85730; 93005; 93010; 94640; 96365; 96367; 96376; 99285-25; G0378

== ENCOUNTER 2024-01-26 19:40 | Emergency (ER) | payer OTHER ==
[2024-01-26 19:45] VITALS: BP 103/61; PULSE 74; RESP 18; TEMP 98.5; BMI 25.1
[2024-01-26] MEDS ORDERED: ONDANSETRON 4 MG/2 ML VIAL ONE (21:28)
[2024-01-26] MEDS ORDERED: morphine SULFATE 4 MG/ML VIAL ONE (21:28)
[2024-01-26] MEDS ORDERED: PHENAZOPYRIDINE HCL 100 MG TABLET (FP) ONE (21:28)
[2024-01-26 21:32] LABS: BASO % 0.3 % (0-2.0); EOS % 2.1 % (0-4.5); HEMATOCRIT 37.5 % (32.4-45.2); HEMOGLOBIN 12.8 GM/dL (10.7-15.3); MCH 31.4 pg (25.7-33.7); MCHC 34.2 g/dl (32.0-36.0); MEAN PLT VOLUME 7.4 fl (7.5-11.1); MONO % 6.7 % (3.8-10.2); NEUT % 67.9 % (42.8-82.8); PLATELET COUNT 274 10^3/uL (134-434); RBC 4.07 M/mm3 (3.60-5.2); RDW 13.1 % (11.6-15.6); WHITE BLOOD COUNT 8.4 K/mm3 (4.0-10.0)
[2024-01-26] MEDS: morphine CARPU-JECT 2 MG/1 ML DISP.SYRIN IVPUSH ONE (21:35)
[2024-01-26] MEDS: ONDANSETRON 4 MG/2 ML VIAL IVPB ONE (21:37)
[2024-01-26] MEDS: PHENAZOPYRIDINE HCL 100 MG TABLET (FP) PO ONE (21:37)
[2024-01-26] MEDS: SODIUM CHLORIDE 0.9% 500 ML INFUS.BAG IV ONE (21:37)
[2024-01-26 21:47] LABS: POTASSIUM 4.3 mmol/L (3.5-5.1)
[2024-01-26 21:50] LABS: ALBUMIN 3.2 g/dl (3.4-5.0); BLOOD UREA NITROGEN 12.7 mg/dL (7-18); CALCIUM 8.7 mg/dL (8.5-10.1)
[2024-01-26 21:52] LABS: CREATININE 0.9 mg/dL (0.55-1.3)
[2024-01-26 21:54] LABS: BILIRUBIN,TOTAL 0.2 mg/dL (0.2-1)
[2024-01-26 22:35] LABS: EPI CELLS >36 /uL (0-25.1); HYALINE CASTS 1 /uL (0-3.1); PH,URINE 6.5 (5.0-8.0); URINE APPEARANCE CLOUDY; URINE BACTERIA 653 /uL (0-1359); URINE BILIRUBIN NEGATIVE (NEGATIVE); URINE COLOR DK YELLOW; URINE GLUCOSE (UA) NEGATIVE (NEGATIVE); URINE KETONE NEGATIVE (NEGATIVE); URINE LEUK ESTERASE 3+ (NEGATIVE); URINE NITRITE NEGATIVE (NEGATIVE); URINE PROTEIN NEGATIVE (NEGATIVE); URINE RBC 9 /uL (0-23.9); URINE UROBILINOGEN 0.2 mg/dL (0.2-1.0); URINE WBC 193 /uL (0-25.8)
[2024-01-26] MEDS ORDERED: KETOROLAC TROMETHAMINE 15 MG/ML VIAL ONE (23:22)
[2024-01-26] MEDS: KETOROLAC TROMETHAMINE 15 MG/ML VIAL IVPUSH ONE (23:29)
[2024-01-27] MEDS ORDERED: SIMETHICONE 80 MG TAB.CHEW (FP) ONE (00:24)
[2024-01-27] MEDS: SIMETHICONE 80 MG TAB.CHEW (FP) PO ONE (00:27)
== END 2024-01-27 00:34 | disposition home or self-care (01) ==
LOC: JER 19:40
PROC: 3E033NZ Introduction of Analgesics, Hypnotics, Sedatives into Peripheral Vein, Percutaneous Approach (ICD-10-PCS; principal; 2024-01-26)
PROC: 3E0333Z Introduction of Anti-inflammatory into Peripheral Vein, Percutaneous Approach (ICD-10-PCS; 2024-01-26)
PROC: 3E033GC Introduction of Other Therapeutic Substance into Peripheral Vein, Percutaneous Approach (ICD-10-PCS; 2024-01-26)
DX: R10.9 Unspecified abdominal pain (principal); N20.0 Calculus of kidney; N30.90 Cystitis, unspecified without hematuria; M41.9 Scoliosis, unspecified; R14.1 Gas pain
CPT/HCPCS: 36415; 74176-TC; 80053; 81003; 84703; 85025; 87086; 99284-25

== ENCOUNTER 2024-10-14 13:21 | Emergency (ER) | payer OTHER ==
[2024-10-14 13:38] VITALS: RESP 17; TEMP 97.5; BMI 26.4
[2024-10-14] MEDS ORDERED: LIDOCAINE 4% PATCH TP ONE (14:26)
[2024-10-14] MEDS ORDERED: METHOCARBAMOL 500 MG TABLET ONE (14:27)
[2024-10-14] MEDS ORDERED: KETOROLAC TROMETHAMINE 30 MG/1 ML VIAL ONE (14:27)
[2024-10-14 14:32] LABS: URINE APPEARANCE CLEAR; URINE BILIRUBIN NEGATIVE (NEGATIVE); URINE COLOR YELLOW; URINE GLUCOSE (UA) NEGATIVE (NEGATIVE); URINE KETONE NEGATIVE (NEGATIVE); URINE LEUK ESTERASE NEGATIVE (NEGATIVE); URINE NITRITE NEGATIVE (NEGATIVE); URINE PROTEIN NEGATIVE (NEGATIVE); URINE UROBILINOGEN 0.2 mg/dL (0.2-1.0)
[2024-10-14] MEDS: LIDOCAINE 5% TOPICAL PATCH TP ONE (14:32)
[2024-10-14] MEDS: KETOROLAC TROMETHAMINE 15 MG/ML VIAL IM ONE (14:33)
[2024-10-14] MEDS: METHOCARBAMOL 500 MG TABLET PO ONE (14:33)
[2024-10-14 17:14] VITALS: BP 96/50; PULSE 72
[2024-10-14] MEDS ORDERED: LIDOCAINE PATCH REMOVAL MC ONE (22:00)
== END 2024-10-14 17:35 | disposition home or self-care (01) ==
LOC: JER 13:21
PROC: 3E0233Z Introduction of Anti-inflammatory into Muscle, Percutaneous Approach (ICD-10-PCS; principal; 2024-10-14)
DX: M54.50 Low back pain, unspecified (principal)
CPT/HCPCS: 74176-TC; 81003; 84703; 87086; 99284-25

== ENCOUNTER 2024-11-21 06:37 | Day surgery (SDC) | payer OTHER ==
[2024-11-19 09:50] VITALS: BMI 29.5
[2024-11-21] MEDS ORDERED: MIDAZOLAM HCL 2 MG/2 ML SINGLE DOSE VIAL ONE ×2 (11:17→11:29)
[2024-11-21] MEDS: ceFAZolin 2 GRAM PREMIX BAG IVPB ONE ×2 (11:28)
[2024-11-21] MEDS ORDERED: PROPOFOL 20 ML ONE (11:37)
[2024-11-21] MEDS ORDERED: ACETAMINOPHEN 325 MG TABLET (FP) ONE (12:07)
[2024-11-21] MEDS: ACETAMINOPHEN 325 MG TABLET (FP) PO ONE (12:15)
[2024-11-21] MEDS: IBUPROFEN 400 MG TABLET (FP) PO ONE (12:16)
[2024-11-21 13:16] VITALS: RESP 18
[2024-11-21 13:40] VITALS: TEMP 97.2
[2024-11-21 13:44] VITALS: BP 102/72; PULSE 80
== END 2024-11-21 14:02 | disposition home or self-care (01) ==
LOC: JASU-SURG 06:37
PROVIDERS: ATTEND Urology
PROC: 0TF4XZZ Fragmentation in Left Kidney Pelvis, External Approach (ICD-10-PCS; principal; 2024-11-21 09:30)
DX: N20.0 Calculus of kidney (principal)
CPT/HCPCS: 94760

== ENCOUNTER 2025-02-17 12:09 | Inpatient (IN) | payer OTHER ==
[2025-02-17] MEDS ORDERED: TENECTEplase 50 MG VIAL IVPUSH ONE (13:24)
[2025-02-17 13:25] LABS: INR 1.06 (0.83-1.09); PROTHROMBIN TIME (PATIENT) 11.5 SEC (9.7-13.0)
[2025-02-17 13:27] LABS: ACTIVATED PTT 32.1 SECONDS (25.2-36.5)
[2025-02-17 13:33] LABS: ABSOLUTE IMMATURE GRANULOCYTES 0.04 x10^3/uL (0.0-0.031); BASOPHILS # 0.04 x10^3/uL (0.01-0.08); EOSINOPHIL % 2.6 % (0.7-5.8); EOSINOPHILS # 0.16 x10^3/uL (0.04-0.36); HEMATOCRIT 41.5 % (34.1-44.9); HEMOGLOBIN 13.7 g/dL (11.2-15.7); MEAN CELL VOLUME 94.3 fl (79.4-94.8); MEAN PLT VOLUME 9.2 fl (9.4-12.3); MONOCYTE # 0.32 x10^3/uL (0.24-0.86); MONOCYTE % 5.2 % (4.7-12.5); PLATELET COUNT 270 x10^3/uL (182-369); RDW 11.9 % (12.2-17.1)
[2025-02-17] MEDS: TENECTEplase 50 MG VIAL IVPUSH ONE (13:50)
[2025-02-17 14:02] LABS: CHLORIDE 105 mmol/L (98-107); POTASSIUM 5.9 mmol/L (3.5-5.1); SODIUM 136 mmol/L (136-145)
[2025-02-17] MEDS: NORMAL SALINE FLUSH 0.9% 5 ML SYRINGE IVPUSH SCH (14:04)
[2025-02-17 14:05] LABS: ALBUMIN 3.3 g/dl (3.4-5.0); ANION GAP 4 mmol/L (4-13); BLOOD UREA NITROGEN 10.7 mg/dL (7-18); CALCIUM 9.2 mg/dL (8.5-10.1); CO2 28 mmol/L (21-32); GLUCOSE,RANDOM 83 mg/dL (74-106)
[2025-02-17 14:08] LABS: CREATININE 0.7 mg/dL (0.55-1.3); SGOT/AST 41 U/L (15-37); SGPT/ALT 18 U/L (13-61)
[2025-02-17 14:09] LABS: PH,URINE 6.5 (5.0-8.0); URINE APPEARANCE CLEAR; URINE BILIRUBIN NEGATIVE (NEGATIVE); URINE COLOR YELLOW; URINE GLUCOSE (UA) NEGATIVE (NEGATIVE); URINE KETONE NEGATIVE (NEGATIVE); URINE LEUK ESTERASE NEGATIVE (NEGATIVE); URINE NITRITE NEGATIVE (NEGATIVE); URINE PROTEIN NEGATIVE (NEGATIVE); URINE UROBILINOGEN 0.2 mg/dL (0.2-1.0)
[2025-02-17 14:10] LABS: ALK PHOS 92 U/L (45-117); CHOLESTEROL 268 mg/dL (50-200); HDL CHOLESTEROL 73 mg/dL (40-60); LDL CHOLESTEROL (ONLY SJRH) 170 mg/dL (5-100); TOT PROT 6.6 g/dl (6.4-8.2)
[2025-02-17 14:11] LABS: BILIRUBIN,TOTAL 0.4 mg/dL (0.2-1)
[2025-02-17] MEDS: SODIUM CHLORIDE 0.9% 500 ML INFUS.BAG IV ONE (14:26)
[2025-02-17] MEDS ORDERED: ACETAMINOPHEN INJECTION 100 ML ONE (14:56)
[2025-02-17] MEDS: ACETAMINOPHEN 1000 MG/100 ML BAG IVPB ONE (15:12)
[2025-02-17] MEDS ORDERED: ACETAMINOPHEN 1000 MG/100 ML BAG IVPB PRN (15:13)
[2025-02-17] MEDS ORDERED: LABETALOL HCL 20 MG/4 ML VIAL IVPUSH PRN (15:36)
[2025-02-17] MEDS ORDERED: oxyCODONE HCL 5 MG TABLET PO PRN (17:46)
[2025-02-17] MEDS ORDERED: ACETAMINOPHEN 325 MG TABLET (FP) PO PRN (17:46)
[2025-02-17] MEDS ORDERED: dilTIAZem HCL 50 MG/10 ML - 10 ML VIAL IVPUSH PRN (18:00)
[2025-02-17] MEDS ORDERED: LEVALBUTEROL HCL 0.31 MG/3 ML VIAL.NEB IH PRN (18:00)
[2025-02-17] MEDS: PATIENT'S OWN MEDICATION (NON-FORMULARY) (Oxycodone Hcl/Acetaminophen [Endocet 10-325 Mg T PO SCH (18:03)
[2025-02-17] MEDS: INSULIN ASPART SLIDING SCALE (NOVOLOG) 1 VIAL SQ SCH (18:47)
[2025-02-17] MEDS: ATORVASTATIN CA 80 MG TABLET (FP) PO SCH (21:13)
[2025-02-17] MEDS ORDERED: ATORVASTATIN CA 40 MG TABLET (FP) PO SCH (22:00)
[2025-02-18] MEDS: ACETAMINOPHEN/CAFFEINE/BUTALBITAL 1 TAB PO PRN (07:14)
[2025-02-18] MEDS: FLUTICASONE/UMECLIDIN/VILANTER(200-62.5-25 TRELEGY ELLIPTA) INAHLER IH SCH (09:06)
[2025-02-18] MEDS: EZETIMIBE 10 MG TABLET (FP) PO SCH (09:06)
[2025-02-18] MEDS: ONDANSETRON 4 MG/2 ML VIAL IVPUSH ONE (09:06)
[2025-02-18] MEDS: POLYETHYLENE GLYCOL (HEALTHYLAX) 3350 17 GM PACKET PO SCH (10:54)
[2025-02-18] MEDS: PANTOPRAZOLE 40 MG TABLET PO SCH (12:01)
[2025-02-18] MEDS: TOPIRAMATE 25 MG TABLET PO SCH (12:01)
[2025-02-18 14:31] LABS: ABSOLUTE IMMATURE GRANULOCYTES 0.03 x10^3/uL (0.0-0.031); BASOPHILS # 0.04 x10^3/uL (0.01-0.08); EOSINOPHIL % 2.1 % (0.7-5.8); EOSINOPHILS # 0.13 x10^3/uL (0.04-0.36); HEMATOCRIT 40.8 % (34.1-44.9); HEMOGLOBIN 13.1 g/dL (11.2-15.7); MCHC 32.1 g/dl (32.2-35.5); MEAN CELL VOLUME 94.9 fl (79.4-94.8); MEAN PLT VOLUME 9.4 fl (9.4-12.3); MONOCYTE # 0.32 x10^3/uL (0.24-0.86); MONOCYTE % 5.2 % (4.7-12.5); PLATELET COUNT 249 x10^3/uL (182-369); RDW 11.9 % (12.2-17.1)
[2025-02-18 14:42] VITALS: BMI 27.1
[2025-02-18 14:57] LABS: POTASSIUM 4.6 mmol/L (3.5-5.1)
[2025-02-18 15:01] LABS: CALCIUM 9.6 mg/dL (8.5-10.1)
[2025-02-18 15:02] LABS: ALBUMIN 3.3 g/dl (3.4-5.0); BLOOD UREA NITROGEN 10.7 mg/dL (7-18); MAGNESIUM 1.9 mg/dL (1.8-2.4)
[2025-02-18 15:05] LABS: CREATININE 0.7 mg/dL (0.55-1.3); PHOSPHOROUS 4.2 mg/dL (2.5-4.9)
[2025-02-18 15:06] LABS: BILIRUBIN,TOTAL 0.4 mg/dL (0.2-1); TOT PROT 6.2 g/dl (6.4-8.2)
[2025-02-18 19:55] VITALS: RESP 18
[2025-02-19] MEDS: oxyCODONE HCL 5 MG TABLET PO PRN ×2 (01:11→08:47)
[2025-02-19] MEDS ORDERED: ACETAMINOPHEN 1000 MG/100 ML BAG IVPB PRN (07:32)
[2025-02-19] MEDS ORDERED: LEVALBUTEROL HCL 0.31 MG/3 ML VIAL.NEB IH PRN (07:32)
[2025-02-19 08:27] LABS: POTASSIUM 4.3 mmol/L (3.5-5.1)
[2025-02-19 08:29] LABS: ALBUMIN 3.6 g/dl (3.4-5.0); CALCIUM 9.6 mg/dL (8.5-10.1)
[2025-02-19 08:30] LABS: BLOOD UREA NITROGEN 11.5 mg/dL (7-18)
[2025-02-19 08:33] LABS: CREATININE 0.7 mg/dL (0.55-1.3); HEMATOCRIT 42.5 % (34.1-44.9); HEMOGLOBIN 13.8 g/dL (11.2-15.7); MCHC 32.5 g/dl (32.2-35.5); MEAN CELL VOLUME 93.4 fl (79.4-94.8); MEAN PLT VOLUME 9.7 fl (9.4-12.3); PLATELET COUNT 212 x10^3/uL (182-369); RDW 11.9 % (12.2-17.1)
[2025-02-19 08:34] LABS: BILIRUBIN,TOTAL 0.7 mg/dL (0.2-1); TOT PROT 6.6 g/dl (6.4-8.2)
[2025-02-19] MEDS ORDERED: ASPIRIN 81 MG CHEWABLE TABLETS PO SCH (10:00)
[2025-02-19] MEDS ORDERED: ENOXAPARIN NA (PORCINE) 40 MG/0.4 ML DISP.SYRIN SQ SCH (10:00)
[2025-02-19] MEDS ORDERED: CLOPIDOGREL BISULFATE 75 MG TABLET (FP) PO SCH (10:00)
[2025-02-19] MEDS: TOPIRAMATE 25 MG TABLET PO SCH (10:34)
[2025-02-19] MEDS: ASPIRIN 81 MG CHEWABLE TABLETS PO SCH (10:34)
[2025-02-19] MEDS: dilTIAZem HCL 30 MG TABLET PO SCH (10:34)
[2025-02-19] MEDS: POLYETHYLENE GLYCOL (HEALTHYLAX) 3350 17 GM PACKET PO SCH (10:35)
[2025-02-19] MEDS: FLUTICASONE/UMECLIDIN/VILANTER(200-62.5-25 TRELEGY ELLIPTA) INAHLER IH SCH (10:35)
[2025-02-19] MEDS: CLOPIDOGREL BISULFATE 75 MG TABLET (FP) PO SCH (10:35)
[2025-02-19] MEDS: PANTOPRAZOLE 40 MG TABLET PO SCH (10:35)
[2025-02-19] MEDS: ACETAMINOPHEN/CAFFEINE/BUTALBITAL 1 TAB PO PRN (14:43)
[2025-02-19 15:00] VITALS: BP 83/52; PULSE 63; TEMP 98.1
[2025-02-19] MEDS ORDERED: ATORVASTATIN CA 80 MG TABLET (FP) PO SCH (22:00)
[2025-02-19] MEDS ORDERED: EZETIMIBE 10 MG TABLET (FP) PO SCH (22:00)
== END 2025-02-19 18:00 | disposition home or self-care (01) | DRG 45 ==
LOC: JER 12:09 → JERBED 14:35 → JICU 17:21 → J4S 02-18 23:38
PROVIDERS: ADMIT Family Medicine; ATTEND Internal Medicine
DX: I63.89 Other cerebral infarction (principal); R29.810 Facial weakness; I48.91 Unspecified atrial fibrillation; I10 Essential (primary) hypertension; E11.9 Type 2 diabetes mellitus without complications; G43.809 Other migraine, not intractable, without status migrainosus; J44.9 Chronic obstructive pulmonary disease, unspecified; G81.94 Hemiplegia, unspecified affecting left nondominant side; R29.705 NIHSS score 5
CPT/HCPCS: 0241U-QW; 36415; 70450-TC; 70496-TC; 70498-TC; 70551-TC; 71045-TC-FY; 80053; 80061; 81003; 82550; 82553; 82962; 83036; 83735; 84100; 84443; 84484; 85025; 85027; 85610; 85730; 86850; 86900; 86901; 93005; 93010; 93306-TC; 97116-GP; 97161-GP; 99291; J3101